=== PATIENT | male | born 2000 | race Caucasian/White ===

== ENCOUNTER 2020-03-05 00:01 | Observation (INO) | payer OTHER, SELFPAY ==
[2020-03-05] VITALS (8 sets, daily range): BP systolic 102–156; BP diastolic 44–115; PULSE 54–108; RESP 13–18; TEMP 36.6–36.9; O2SAT 94–100; BMI 30.2
--- NOTE | 2020-03-05 00:03 | W.ED.PSYCH ---
HPI - Psych General: Chief Complaint: Psychiatric Symptoms Stated Complaint: SI Time Seen by Provider: 03/05/20 00:02 Source: patient and EMS Mode of arrival: EMS Limitations: no limitations History of Present Illness: HPI Narrative: Patient is a 19-year-old male who presents to ED today via EMS for complaints of suicidal ideation and intoxication. Patient tells me him and his got into an argument and the left. Patient states at that time he began drinking and called the several times making suicidal statements. He also made suicidal statements to the [id number]. EMS did not fill out an affidavit or 96-hour hold. Patient stating he still is currently suicidal. Denies homicidal ideations or hallucinations. Denies drug use. Admits to occasional alcohol use. MD complaint: suicidal ideation and feels depressed Associated symptoms: Reports depression and suicidal ideation; Deny auditory hallucinations, visual hallucinations or homicidal ideation Review of Systems Const: Denies: fever(s) or chills Card: Denies: chest pain, palpitations, lightheadedness or syncope Resp: Denies: dyspnea GI: Denies: abdominal pain, nausea, vomiting or diarrhea Skin/Breast: Denies: rash Neuro: Denies: headache(s) Psych: Reports: depression, hopelessness and suicidal ideation; Denies: anxiety, visual hallucinations, auditory hallucinations or homicidal ideation PFS ED PFSH: Social History Smoking and tobacco status: current every day smoker smokeless tobacco Smokeless tobacco user: chewing tobacco Smokeless tobacco details: 1 can per day Quit status (tobacco): not considering quitting Alcohol intake: never History of recent travel: No Physical Exam Const: COMMON NORMALS: no acute distress, patient oriented x3, alert and well nourished GENERAL APPEARANCE: cooperative and well kempt Resp: COMMON NORMALS: normal respiratory effort and clear to auscultation bilaterally AUSCULTATION: clear to auscultation bilaterally Cardio: COMMON NORMALS: regular rate and regular rhythm RATE: regular rate RHYTHM: regular rhythm Neuro: COMMON NORMALS: patient oriented x3 SENSORIUM/ORIENTATION: Yes alert Psych: COMMON NORMALS: mental status grossly normal, Normal thought process present, cooperative, normal affect, speech normal, activity/motor behavior normal, denies hallucinations and denies homicidal ideation APPEARANCE: Yes grossly normal and Yes well kempt ATTITUDE: Yes calm ACTIVITY/MOTOR BEHAVIOR: Yes appropriate eye contact and No psychomotor agitation SPEECH: Yes normal speech MOOD & AFFECT: Yes euthymic mood THOUGHT PROCESS: Normal thought process present THOUGHT CONTENT: Yes Normal thought content present ATTENTION/CONCENTRATION: Yes attention grossly intact and Yes concentration grossly intact MEMORY/COGNITION: Yes memory grossly intact and Yes cognition grossly intact INSIGHT: Fair insight present (Psych) JUDGEMENT: Fair judgement present (Psych) (secondary to intoxication) MDM - Psych Lab Data: Labs: Lab Results 03/05/20 03/05/20 03/05/20 Range/Units 00:28 00:28 00:29 WBC 8.9 (4.0-10.0) 10^3/ uL RBC 6.14 H (4.1-5.3) 10^6/u L Hgb 17.2 H (11.7-16.6) g/dL Hct 49.5 (42.0-52.0) % MCV 80.6 (80-94) fL MCH 28.0 (28.0-34.0) pg MCHC 34.7 (30.0-36.0) g/dL RDW 12.1 (12.1-15.1) % Plt Count 261 (130-400) 10^3/c mm MPV 10.3 (7.4-10.4) fL Neut % (Auto) 66.6 % Lymph % (Auto) 25.4 % [place] % (Auto) 6.5 % Eos % (Auto) 0.7 % Baso % (Auto) 0.4 % Neut # (Auto) 5.94 (1.8-7.7) 10^3/u L Lymph # (Auto) 2.3 (0.8-4.8) 10^3/u L [place] # (Auto) 0.6 (0.2-0.9) 10^3/u L Eos # (Auto) 0.1 (0.0-0.8) 10^3/u L Baso # (Auto) 0.0 (0.0-0.1) 10^3/u L Nucleated RBC % (a uto) 0 % Nucleated RBCs # 0.0 /100WBC Sodium 141 (136-145) mmol/L Potassium 3.9 (3.5-5.1) mmol/L Chloride 107 (98-107) mmol/L Carbon Dioxide 23 (22-29) mmol/L Anion Gap 14.9 (5-19) BUN 9 (6-20) mg/dL Creatinine 0.9 (0.7-1.2) mg/dL GFR Calculation 106.5 (90-130) mL/min Glucose 112 (65-115) mg/dL Calculated Osmolal ity 291 (285-295) mOsm/k g Calcium 9.0 (8.5-10.5) mg/dL Total Bilirubin 0.8 (0.15-1.2) mg/dL AST 27 (0-40) U/L ALT 44 H (0-41) U/L Alkaline Phosphata se 86 (40-130) IU/L Total Protein 8.1 (6.6-8.7) g/dL Albumin 4.7 (3.5-5.2) g/dL Globulin 3.4 (1.3-4.6) g/dL Salicylates < 0.3 L (3-10) mg/dL Urine Opiates Scre en Negative (Negative) ng/mL Acetaminophen < 5.0 L (10-30) ug/mL Ur Barbiturates Sc reen Negative (Negative) ng/mL Ur Phencyclidine S crn Negative (Negative) ng/mL Ur Amphetamines Sc reen Negative (Negative) ng/mL U Benzodiazepines Scrn Negative (Negative) ng/mL Urine Cocaine Scre en Negative (Negative) ng/mL U Marijuana (THC) Screen Negative (Negative) ng/mL Ethyl Alcohol 199 H (0-10) mg/dL Discharge Plan Discharge Patient Disposition: Admitted As Inpatient Admit Provider: Lavon Luna Clinical Impression: Suicidal ideation Acute alcohol intoxication Qualifiers: Complication of substance-induced condition: uncomplicated Qualified Code(s): F10.920 - Alcohol use, unspecified with intoxication, uncomplicated Condition: Stable Coding Level of Care Code ED In Room Dining Server for Kelsey Fwd Exam Expanded Problem Focused
[2020-03-05 00:36] LABS: Basophils % 0.4 %; Eosinophils # 0.1 10^3/uL (0.0-0.8); Eosinophils % 0.7 %; Hematocrit 49.5 % (42.0-52.0); Hemoglobin 17.2 g/dL (11.7-16.6); Lymphocytes # 2.3 10^3/uL (0.8-4.8); Lymphocytes % 25.4 %; Mean Corpuscular HGB Conc 34.7 g/dL (30.0-36.0); Mean Corpuscular Volume 80.6 fL (80-94); Mean Platelet Volume 10.3 fL (7.4-10.4); Monocytes # 0.6 10^3/uL (0.2-0.9); Monocytes % 6.5 %; Neutrophils # 5.94 10^3/uL (1.8-7.7); Neutrophils % 66.6 %; Nucleated Red Blood Cells % 0 %; Platelet Count 261 10^3/cmm (130-400); Red Blood Count 6.14 10^6/uL (4.1-5.3); Red Cell Distribution Width 12.1 % (12.1-15.1); White Blood Count 8.9 10^3/uL (4.0-10.0)
[2020-03-05 00:53] LABS: Alanine Aminotransferase 44 U/L (0-41); Albumin Level 4.7 g/dL (3.5-5.2); Alcohol Level 199 mg/dL (0-10); Alkaline Phosphatase 86 IU/L (40-130); Anion Gap 14.9 (5-19); Aspartate Amino Transferase 27 U/L (0-40); Blood Urea Nitrogen 9 mg/dL (6-20); Carbon Dioxide 23 mmol/L (22-29); Chloride 107 mmol/L (98-107); Globulin 3.4 g/dL (1.3-4.6); Glomerular Filtration Rate 106.5 mL/min (90-130); Glucose 112 mg/dL (65-115); Osmolality Calculated 291 mOsm/kg (285-295); Potassium 3.9 mmol/L (3.5-5.1); Sodium 141 mmol/L (136-145); Total Bilirubin 0.8 mg/dL (0.15-1.2); Total Protein 8.1 g/dL (6.6-8.7)
[2020-03-05 00:54] LABS: Acetaminophen < 5.0 ug/mL (10-30); Salicylate < 0.3 mg/dL (3-10)
[2020-03-05 01:02] LABS: Amphetamines Screen Urine Negative (Negative); Barbiturates Screen Urine Negative (Negative); Benzodiazepines Screen Urine Negative (Negative); Cocaine Screen Urine Negative (Negative); Opiate Screen Urine Negative (Negative); PCP Screen Urine Negative (Negative); THC Screen Urine Negative (Negative)
[2020-03-05] MEDS: ondansetron 4 MG Tablet PO (02:48)
--- NOTE | 2020-03-05 15:08 | P.SS_ITS ---
Short Stay Summary Providers Date of Admit/Discharge: 03/07/20 Attending Provider: Lavon Luna MD Chief Complaint: SI HPI History of Present Illness Dominguez Lees is a 19 year old male who presented to the emergency department with the following report: Patient is a 19-year-old male who presents to ED today via EMS for complaints of suicidal ideation and intoxication. Patient tells me him and his got into an argument and the left. Patient states at that time he began drinking and called the several times making suicidal statements. He also made miguel ángel cidal statements to the [id number]. EMS did not fill out an affidavit or 96- hour hold. Patient stating he still is currently suicidal. Denies homicidal ideations or hallucinations. Denies drug use. Admits to occasional alcohol use. MD complaint: suicidal ideation and feels depressed Associated symptoms: Reports depression and suicidal ideation; Deny auditory hallucinations, visual hallucinations or homicidal ideation. Dominguez was admitted to the neuropsychiatric unit for definitive treatment of those issues. He presented today reporting that he had gotten very intoxicated and then made some off the wall statements to his mother in law. He reports that he did not mean any of them and he just had way too much to drink. He reports that things have been stressful recently. He lost his job and he is working on that. But he reports that he has not had a history of any mental health treatment, any therapy, or any kinds of problems that have needed interventions; he just feels that he got so drunk that he was overly emotional. His UDS was negative, but his blood alcohol level was 199. He reports that he used to smoke about a pack of cigarettes a day, and a month ago he began quitting, and he still slips in some cigarettes from time to time, but he said he has been doing better with that. He reports that normally he drinks about two to three times a week, after work, maybe somewhere between two and six beers. He does not smoke marijuana or have any other illicit drug use. He has never been to a drug rehabilitation or had a DUI. He reports he has never had any suicide attempts and has never felt suicidal, and he just misspoke and should not get intoxicated like that. PSYCHIATRIC HISTORY: As above. SUBSTANCE ABUSE HISTORY: As above. FAMILY HISTORY: Denied. DEVELOPMENTAL HISTORY: The patient denies any issues with his mother?s or delivery of him. The patient met all developmental milestones on time. The patient denies speech therapy, learning support, emotional support, or special education classes. PSYCHOSOCIAL HISTORY: He reports that he does not know if his parents were together when he was born because he was adopted at around three months old. He does not know what issues led to him being adopted, but he was adopted by a family who had two older sons, and they adopted him and his twin brother. He reports that his childhood with his adoptive family was good. There was no emotional, physical, or sexual abuse. He did not graduate from high school and has not gotten his GED, but he has thought about it. He endorses being heterosexual, and his longest relationship has been about four years with his current . He has been once and has an almost 2 year old son. He has never been in the . He endorses being a Muslim. 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 He currently lives in a house with his and his son. LEGAL HISTORY: He denies ever being in [place] [facility]. MEDICAL HISTORY: He denies any medical problems, although by BMI he is obese. MENTAL STATUS EXAMINATION: This is an overweight versus obese, white male, with adequate dress, grooming, and eye contact. No abnormal movements. Cooperative with exam in no acute distress. Speech was normal rate and volume. Mood described as good; affect congruent. Thought process, organized. Thought content: patient denied any suicidal or homicidal ideation, there were no delusions reported or noted, patient denied any auditory or visual hallucinations. Attention, concentration, and memory appear intact but none were formally tested. He is alert and oriented times three. Insight and judgment are good. ASSESSMENT AND DIAGNOSIS: This is a 19 year old, white male, with a history of alcohol use and no evidence of alcohol use disorder, with recent loss of his job which led to him getting drunk and making some statements that he denies embracing sober, with no psychia tric or addiction history otherwise. RECOMMENDATION AND PLAN: Continue current medication. Encourage individual, group, and milieu therapy. Continue q-15 minute checks for safety. The patient is absent credible lethality, so if we can confirm or corroborate his reporting of the story and his history, we will discharge him today. Encourage sober living treatment at the highest level of care to which the patient is willing to commit. He will get a referral for services. Home Meds/Allergies Home Medications and Allergies Home Medications Medication Instructions Recorded Confirmed Type No Known Home Medications 03/05/20 03/05/20 History Allergies Allergy/AdvReac Type Severity Reaction Status Date / Time No Known Allergies Allergy Verified 11/21/19 11:22 PFSH Acute PFSH: Social History Smoking and tobacco status: current every day smoker smokeless tobacco Smokeless tobacco user: chewing tobacco Smokeless tobacco details: 1 can per day Quit status (tobacco): not considering quitting Alcohol intake: never History of recent travel: No Vitals/I&O/Wt Last Vital Signs Temp 98.5 F 03/05/20 13:10 Pulse 78 03/05/20 13:10 Resp 18 03/05/20 13:10 BP 138/75 03/05/20 13:10 Pulse Ox 98 03/05/20 13:10 Weight last 48 hrs Weight 106.594 kg Hospital Course Hospital Course: The patient presented to the emergency room intoxicated and having been picked by EMS after complaints of suicidal ideation with that intoxication. The patient told the emergency room doctor that there had been an argument with his and his had left, and he had attempted to call his several times and made suicidal statements to her and his mother in law. He was stating that he was still suicidal in the emergency room, but denied overuse of alcohol other than on this occasion, as far as a standard. He was admitted to the neuropsychiatric unit for definitive treatment of those issues. In the morning, he was sober and denying all concerns. The family confirmed that he had not had some long decompensation but only had a bad day while intoxicated. He was absent credible lethality and denied need or desire for treatments and was allowed to discharge. During the hospitalization, the patient had routine laboratory studies which were within normal limits, except for a few outliers. Additionally, the patient had a general medical evaluation which was within normal limits and revealed no new acute processes. Discharge Summary: At the time of discharge the patient denied all lethality, was absent psychosis, and mood and anxiety were well managed. The patient endorsed a plan to avoid all drugs of abuse and to follow-up with outpatient services, as recommended. The patient was evaluated and deemed to be absent credible lethality, and had achieved the maximum benefit from an inpatient hospitalization, and so he was discharged. Diagnoses at Discharge Discharge Diagnosis (1) Adjustment disorder: Status: Acute (2) Alcohol use: Status: Acute (3) Suicidal ideation: Status: Resolved (4) Acute alcohol intoxication: Status: Resolved Qualifiers: Complication of substance-induced condition: uncomplicated Qualified Code(s): F10.920 - Alcohol use, unspecified with intoxication, uncomplicated Discharge Plan Discharge Patient Disposition: Home Condition: Stable Prescriptions: Continued No Known Home Medications RF: 0 Discharge Orders: Discharge Order (Routine); Ordered 03/05/20 Ordered By: Lavon Luna Referrals: [facility] [Outside] (Initial assessment can be done by phone. May take intake paperwork to the clinic in [facility] and they can send to [place]. Your first psychiatric evaluation will be done at the [place] location but after that most of your visits should be at the [facility] location.) Yahir Rock FNP [Nurse Practitioner] - Discharge Diet: Regular Discharge Activity: Resume usual activity Discharge Date/Time: 03/05/20 17:44 Attestations Medical Necessity Statement*: Inpatient hospitalization is not medically necessary or the clinically appropriate intervention, at this time. The patient is absent credible lethality and denies any need or desire for psychiatric intervention; based on his evaluation and lack of credible lethality we will discharge to home, per his wish. Time Spent in Patient Care*: greater than 30 min Specific Discharge Activities: Specific discharge activities: educating patient, discussing with manager of case/social workers/dc planners, documenting/other paperwork and evaluating patient/reviewing data Quality Metrics Clinical Quality Measures: During this hospital stay, did patient experience: None Coding Level of Care Code Acute Guest Service Manager for g Fwd Diagnoses Adjustment disorder F43.20 Alcohol use Z72.89 Suicidal ideation R45.851 Acute alcohol intoxication F10.920 Complication of substance-induced condition: uncomplicated
--- NOTE | 2020-03-05 18:18 | PC.RESP ---
Smoking Cessation information sent to patient.
== END 2020-03-05 17:44 | disposition home or self-care (01) ==
LOC: ER 01:16 → NP 08:28
PROVIDERS: Admitting Provider Psychiatry & Neurology Psychiatry; Emergency Provider Physician Assistant; Visit Provider Psychiatry & Neurology Psychiatry
DX: R45.851 Suicidal ideations (principal); F43.20 Adjustment disorder, unspecified; F10.920 Alcohol use, unspecified with intoxication, uncomplicated; F17.220 Nicotine dependence, chewing tobacco, uncomplicated; E66.01 Morbid (severe) obesity due to excess calories; Z68.30 Body mass index [BMI] 30.0-30.9, adult; Y90.6 Blood alcohol level of 120-199 mg/100 ml
CPT/HCPCS: 12345; 80053; 80306; 80307; 85025; 99284; 99285; G0378; Q0162

== ENCOUNTER → 2021-08-02 15:51 | Outpatient (BNVA) | payer MEDICAID, SELFPAY | PROVIDERS: Visit Provider Nurse Practitioner Family | DX: S43.51XA Sprain of right acromioclavicular joint, initial encounter (principal); X58.XXXA Exposure to other specified factors, initial encounter | CPT/HCPCS: 73030 ==

== ENCOUNTER 2022-04-12 15:37 | Emergency (ER) | payer MEDICAID, SELFPAY ==
--- NOTE | 2022-04-12 16:05 | USR_ITS ---
PROCEDURE INFORMATION: Exam: US Duplex Right Lower Extremity Veins, Limited Exam date and time: 04/12/2022 5:42 PM Age: 21 years old Clinical indication: Leg, lower; Right; Patient HX: No trauma and pain for 3 weeks; Additional info: Right calf pain-no injury TECHNIQUE: Imaging protocol: Real-time Duplex ultrasound of the Right Lower Extremity with 2-D willard scale, color Doppler flow and spectral waveform analysis with image documentation. Limited exam was focused on the right lower extremity veins. COMPARISON: No relevant prior studies available. FINDINGS: Right deep veins: Unremarkable. The common femoral, femoral, popliteal, posterior tibial and peroneal veins are patent without thrombus. Normal Doppler waveforms. Normal compressibility and/or augmentation response. Right superficial veins: Unremarkable. Saphenofemoral junction is patent without thrombus. Soft tissues: Small to moderate amount of edema and fluid in the region of the Achilles tendon, suggesting myotendinous injury. US/[place] [id number] IMPRESSION: 1. No sonographic evidence of deep vein thrombosis. 2. Small to moderate amount of edema and fluid in the region of the Achilles tendon, suggesting myotendinous injury.
[2022-04-12 16:09] VITALS: BP 164/93; PULSE 72; RESP 15; TEMP 36.6; O2SAT 98; BMI 29.7
--- NOTE | 2022-04-12 17:33 | ED_ITS ---
HPI - Extremity Problem General: Chief complaint: Extremity Injury, Lower Stated complaint: Sent from [facility] for right leg problem Time Seen by Provider: 04/12/22 17:33 History of Present Illness: Patient is a 21-year-old male comes to the ED with right leg complaint. Patient was sent here by [facility] to get an ultrasound of right leg to rule out DVT. Approximately 3 weeks ago patient says he was picking up some walnuts and bent over to [employer] and hyperextended his right knee. After that he had some pain behind his right knee and some swelling over his right knee. He states that his knee feels a little stiff and swollen. Over the past couple days patient has had pain that is moved down into his right calf. He now has right calf soreness. Denies any chest pain, shortness of breath or hemoptysis. Denies any history of DVTs, recent long car rides, immobilization or any recent surgeries. Associated symptoms: Deny chest pain, fever(s) or rash Review of Systems Const: Denies: fever(s), chills or fatigue Eyes: Denies: change in vision or eye discomfort ENMT: Denies: throat pain, odynophagia, nasal discharge or nasal congestion Card: Denies: chest pain, palpitations, edema, swelling of feet/ankles, dyspnea on exertion or orthopnea Resp: Denies: dyspnea, productive cough or non-productive cough GI: Denies: abdominal pain, nausea, vomiting, diarrhea, constipation or hematochezia : Denies: flank pain, difficulty urinating, dysuria or hematuria Musc: Reports: extremity pain and extremity swelling; Denies: neck pain or back pain Skin/Breast: Denies: rash or new lesions Neuro: Denies: headache(s), numbness in extremities or weakness in extremities PFS ED PFSH: Medical History No pertinent family history No pertinent past medical history Social History Smoking and tobacco status: current every day smoker smokeless tobacco Smokeless tobacco user: chewing tobacco Smokeless tobacco details: 1 can per day Quit status (tobacco): not considering quitting Alcohol intake: never History of recent travel: No Physical Exam Const: COMMON NORMALS: no acute distress, patient oriented x3, healthy appearing and alert GENERAL APPEARANCE: cooperative and comfortable HENMT: COMMON NORMALS: normocephalic HEAD & SCALP: normocephalic MOUTH: Normal oral and palatal mucosa present THROAT: posterior oropharynx normal and uvula midline Neck/C-Spine: COMMON NORMALS: supple GENERAL: Yes normal visual inspection Resp: COMMON NORMALS: normal respiratory effort, No retractions, No use of accessory muscles and clear to auscultation bilaterally AUSCULTATION: clear to auscultation bilaterally Cardio: COMMON NORMALS: regular rate, regular rhythm, S1 normal heart sound present, S2 normal heart sound present, No gallops present (Cardio), No clicks present (Cardio), No murmurs present (Cardio) and Peripheral pulses 2+ throughout RATE: regular rate RHYTHM: regular rhythm HEART SOUNDS: S1 normal heart sound present and S2 normal heart sound present PERIPHERAL PULSES: Peripheral pulses 2+ throughout GI: COMMON NORMALS: Normal to inspection, nondistended, normoactive bowel sounds present, Soft to palpation, non-tender and no masses PALPATION: Yes Soft to palpation : COMMON NORMALS: Yes no CVA tenderness BLADDER/KIDNEY EXAM: Yes no CVA tenderness Back/Pelvis: COMMON NORMALS: no CVA tenderness Extremity: GENERAL: Yes calf tenderness (Right calf) and Yes edema (Right lower leg nonpitting edema) Neuro: COMMON NORMALS: patient oriented x3 SENSORIUM/ORIENTATION: Yes alert GAIT: Yes Normal gait present Skin: GENERAL SKIN EXAM: dry skin Course Vital Signs: Vital signs: Vital Signs Temperature 97.9 F 04/12/22 16:09 Pulse Rate 72 04/12/22 16:09 Respiratory Rate 15 04/12/22 16:09 Blood Pressure 164/93 04/12/22 16:09 Pulse Oximetry 98 04/12/22 16:09 Oxygen Delivery Me thod 04/12/22 16:09 MDM - Extremity (Nontraumatic) Medical Decision Making Patient is a 21-year-old male comes to the ED with right leg complaint. Patient was sent here by [facility] to get an ultrasound of right leg to rule out DVT. Denies any chest pain, shortness of breath or hemoptysis. Denies any history of DVTs. Vitals are stable. Patient appears nontoxic in no acute distress or pain. He has some nonpitting edema to right lower leg. Right calf tenderness upon exam. X-ray of right knee showed no acute findings. Ultrasound venous duplex of right lower extremity showed no DVTs or blood clots seen. Patient was stable for discharge home and diagnosed with pain in right lower leg. Told to follow-up with PCP within the next week for reevaluation. He was sent home with a prescription for ibuprofen 800 mg. Told to rest, ice and elevate right leg. Patient understood and agreed with plan. Lab Data Radiology Impressions Venous Duplex 04/12/22 16:05 IMPRESSION: 1. No sonographic evidence of deep vein thrombosis. 2. Small to moderate amount of edema and fluid in the region of the Achilles tendon, suggesting myotendinous injury. Knee X-Ray 04/12/22 17:40 IMPRESSION: No acute radiographic findings. Discharge Plan Discharge Patient Disposition: Home Clinical Impression: Pain in right lower leg Condition: Stable Prescriptions: New ibuprofen 800 mg tablet 800 mg PO Q8H PRN (Reason: pain) Qty: 20 0RF Discharge Orders: Discharge ED (Routine); Ordered 04/12/22 Ordered By: Salomón Perry Discharge Diet: Regular Discharge Activity: Increase activity as tolerated Activity Restrictions/Additional Instructions: Follow-up with medical provider as directed. Rest, ice and elevate right leg to help with symptoms. Take medications as prescribed. Return to the ER or your medical provider if condition worsens. Please read and understand discharge instructions. Thank you for choosing [facility] for your healthcare needs today. Please realize this is an emergency room and that we are providing you with a medical screening exam and this may not be complete and all inclusive of all the testing and or work up that you may need to determine your ailment or severity of your illness. It is very important that you follow up as instructed or that you return to the Emergency Department should you have concerns or if your condition changes or worsens in any way. Coding Level of Care Code ED Rib Bender for Kelsey Clark Exam Comprehensive
--- NOTE | 2022-04-12 17:40 | XRR_ITS ---
PROCEDURE INFORMATION: Exam: XR Right Knee Exam date and time: 04/12/2022 5:53 PM Age: 21 years old Clinical indication: Pain; Knee; Right; Additional info: Right knee swelling and pain TECHNIQUE: Imaging protocol: Radiologic exam of the Right knee. Views: 3 views. COMPARISON: [place] [id number] 04/12/2022 5:42 PM FINDINGS: Bones/joints: No radiographic evidence of acute fracture or dislocation. Alignment anatomic. Joint spaces preserved. No significant effusion. Soft tissues: Grossly unremarkable. XR/XR knee RT 3V* [id number] IMPRESSION: No acute radiographic findings.
== END 2022-04-12 19:03 | disposition home or self-care (01) ==
PROVIDERS: Emergency Provider Physician Assistant
DX: M79.661 Pain in right lower leg (principal); F17.220 Nicotine dependence, chewing tobacco, uncomplicated
CPT/HCPCS: 73562; 93971; 99284